=== PATIENT | female | born 1960 | race Caucasian/White ===

== ENCOUNTER 2017-02-04 20:56 | Emergency (ER) | payer BC ==
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
== END 2017-02-05 02:00 | disposition home or self-care (01) ==
LOC: CED 20:56
DX: S06.0X9A Concussion with loss of consciousness of unspecified duration, initial encounter (principal); S52.101A Unspecified fracture of upper end of right radius, initial encounter for closed fracture; S91.112A Laceration without foreign body of left great toe without damage to nail, initial encounter; W22.8XXA Striking against or struck by other objects, initial encounter; Y92.009 Unspecified place in unspecified non-institutional (private) residence as the place of occurrence of the external cause
CPT/HCPCS: 12001; 29105; 70450; 70486; 72125; 73080; 96372; 99284; J2550